=== PATIENT | female | born 1950 | race Caucasian/White ===

== ENCOUNTER 2017-09-02 06:18 | Inpatient (IN) ==
[2017-08-27 12:36] LABS: Basophils # 0.1 10*3/uL (0.0-0.2); Basophils % 0.9 % (0.0-0.8); Eosinophils # 0.4 10*3/uL (0.0-0.87); Eosinophils % 5.5 % (0.00-10.9); Hematocrit 43.9 VOL% (35.7-47.0); Hemoglobin 15.1 GM/DL (12.0-16.0); Immature Granulocytes % 0.1 %; Immature Granulocytes Absolute 0.01 #; Lymphocytes # 2.5 10*3/uL (1.4-4.0); Lymphocytes % 36.4 % (21.3-54.2); Mean Corpuscular HGB Conc 34.4 GM/DL (32-36); Mean Corpuscular Hemoglobin 32 PG (27-34); Mean Corpuscular Volume 92.6 FL (87-102); Mean Platelet Volume 11.3 FL (9.6-12.0); Monocytes # 0.4 10*3/uL (0.11-0.8); Monocytes % 5.7 % (1.7-12.7); Neutrophils # 3.6 10*3/uL (1.4-7.4); Neutrophils % 51.4 % (38.7-73.9); Platelet Count 283 T/CUMM (130-400); Red Blood Count 4.74 MC/CUMM (3.8-5.5); Red Cell Distribution Width 13.9 % (9.3-17.3); White Blood Count 6.9 T/CUMM (4-12)
[2017-08-27 13:13] LABS: Alanine Aminotransferase 24 U/L (13-56); Alkaline Phosphatase 120 U/L (45-117); Aspartate Amino Transferase 25 U/L (0-37); Bilirubin,Total < 0.39 MG/DL (0.2-1.0); Blood Urea Nitrogen 16 MG/DL (7-18); Calcium 9.4 MG/DL (8.5-10.1); Glucose 90 MG/DL (74-106); Osmolality,Calculated 277.5 MOS/KG (273-304); Potassium 4.6 MMOL/L (3.5-5.1); Sodium 139 MMOL/L (136-145); Total Protein 8.5 G/DL (6.4-8.3)
[~2017-09-02 06:18] MED LIST: ceFAZolin 1,000 MG in SYRINGE 1 EACH IV ONE
[2017-09-02] MEDS ORDERED: TISSUE ADHESIVE 1 EACH APPLICATOR TOP ONE (06:24)
[2017-09-02] MEDS ORDERED: THROMBIN TOPICAL (RECOMBINANT) 5,000 UNIT VIAL TOP ONE (06:24)
[2017-09-02] MEDS ORDERED: HEPARIN 5,000 UNIT/1 ML VIAL ONE (06:24)
[2017-09-02] MEDS ORDERED: VANCOMYCIN 500 MG VIAL ONE (06:24)
[2017-09-02] MEDS ORDERED: LIDOCAINE 1% 50 ML VIAL ONE (06:24)
[2017-09-02] MEDS ORDERED: HEPARIN/NACL 0.9% 2 UNITS/ML 500 ML IV ONE (06:42)
[2017-09-02] MEDS ORDERED: NITROGLYCERIN DRIP 50 MG/250 ML BOTTLE IV ONE (06:42)
[2017-09-02] MEDS ORDERED: HEPARIN/NACL 0.9% 2 UNITS/ML 3,000 ML IV ONE (07:23)
[2017-09-02] MEDS ORDERED: ceFAZolin 1,000 MG VIAL ONE (07:24)
[2017-09-02] MEDS ORDERED: ALBUTEROL/IPRATROPIUM 3 ML NEB RESP TX ONE (07:24)
[2017-09-02] MEDS ORDERED: LACTATED RINGERS 1,000 ML IV SCH ×2 (07:30→10:00)
[2017-09-02] MEDS ORDERED: MIDAZOLAM 2 MG/2 ML VIAL ONE ×2 (07:38→10:43)
[2017-09-02] MEDS ORDERED: ONDANSETRON 4 MG/2 ML VIAL IV PRN (09:49)
[2017-09-02] MEDS ORDERED: HYDROmorphone 2 MG/1 ML VIAL IV PRN (09:49)
[2017-09-02] MEDS ORDERED: NITROGLYCERIN SL 0.4 MG TABLET SL PRN (09:53)
[2017-09-02] MEDS ORDERED: FUROSEMIDE 40 MG TABLET PO SCH (10:00)
[2017-09-02] MEDS ORDERED: PROPOFOL 200 MG/20 ML VIAL IV ONE (10:41)
[2017-09-02] MEDS ORDERED: HEPARIN 10,000 UNIT/10 ML VIAL ONE (10:42)
[2017-09-02] MEDS ORDERED: SEVOFLURANE 1 UNIT/15 MINUTE INH ONE (10:42)
[2017-09-02] MEDS ORDERED: PHENYLEPHRINE 10 MG/1 ML VIAL IV ONE (10:43)
[2017-09-02] MEDS ORDERED: fentaNYL 100 MCG/2 ML VIAL ONE (10:43)
[2017-09-02] MEDS ORDERED: ONDANSETRON 4 MG/2 ML VIAL ONE (10:43)
[2017-09-02] MEDS ORDERED: GLYCOPYRROLATE 0.4 MG/2 ML VIAL ONE (10:43)
[2017-09-02] MEDS ORDERED: SODIUM CHLORIDE 0.9% 250 ML IV ONE (10:44)
[2017-09-02] MEDS ORDERED: LACTATED RINGERS 1,000 ML IV ONE (10:44)
[2017-09-02] MEDS ORDERED: SODIUM CHLORIDE 0.9% 1,000 ML IV ONE (10:44)
[2017-09-02] MEDS ORDERED: NEOSTIGMINE 10 MG/10 ML VIAL ONE (10:44)
[2017-09-02] MEDS ORDERED: ROCURONIUM 100 MG/10 ML VIAL IV ONE (10:44)
[2017-09-02 10:46] LABS: Hematocrit 37.7 VOL% (35.7-47.0); Hemoglobin 12.6 GM/DL (12.0-16.0)
[2017-09-02] MEDS ORDERED: PITAVASTATIN 2 MG TABLET PO SCH (21:00)
[2017-09-02] MEDS ORDERED: INSULIN LISPRO 100 UNIT/ML SUBCUT SCH (21:00)
[2017-09-02] MEDS: oxyCODONE/ACETAMINOPHEN 5-325 MG TABLET PO PRN (21:06)
[2017-09-02] MEDS: MAGNESIUM OXIDE 400 MG TABLET PO SCH (21:07)
[2017-09-02] MEDS: RANOLAZINE 500 MG TABLET PO SCH (21:07)
[2017-09-03] MEDS: oxyCODONE/ACETAMINOPHEN 5-325 MG TABLET PO PRN (04:09)
[2017-09-03 05:08] LABS: Hematocrit 36.2 VOL% (35.7-47.0); Hemoglobin 12.6 GM/DL (12.0-16.0)
[2017-09-03 05:35] LABS: Calcium 8.5 MG/DL (8.5-10.1); Osmolality,Calculated 281.3 MOS/KG (273-304); Potassium 4.3 MMOL/L (3.5-5.1)
[2017-09-03] MEDS: RANOLAZINE 500 MG TABLET PO SCH (08:09)
[2017-09-03] MEDS: MAGNESIUM OXIDE 400 MG TABLET PO SCH (08:13)
[2017-09-03] MEDS ORDERED: AMIODARONE 200 MG TABLET PO SCH (09:00)
[2017-09-03] MEDS ORDERED: INSULIN LISPRO 100 UNIT/ML SUBCUT SCH (09:00)
[2017-09-03] MEDS ORDERED: amLODIPine 2.5 MG TABLET PO SCH (09:00)
[2017-09-03] MEDS ORDERED: FUROSEMIDE 40 MG TABLET PO SCH (09:00)
[2017-09-03] MEDS ORDERED: METOPROLOL SUCCINATE XL 25 MG TABLET PO SCH (09:00)
[2017-09-03] MEDS ORDERED: LOSARTAN 25 MG TABLET PO SCH (09:00)
[2017-09-03] MEDS ORDERED: ISOSORBIDE MONONITRATE 60 MG TABLET PO SCH (09:00)
[2017-09-03] MEDS ORDERED: SPIRONOLACTONE 25 MG TABLET PO SCH (09:00)
[2017-09-03] MEDS ORDERED: ASPIRIN EC 81 MG TABLET PO SCH (09:00)
[2017-09-03] MEDS ORDERED: POTASSIUM GLUCONATE 500 MG TABLET PO SCH (09:00)
[2017-09-03 09:09] VITALS: BP 121/71
[2017-09-03] MEDS ORDERED: BISACODYL 5 MG TABLET PO PRN (09:34)
== END 2017-09-03 10:55 | disposition home or self-care (01) | DRG 269 ==
LOC: N.SDSINP 06:18 → N.4E 11:30
PROVIDERS: ADMIT Surgery; ATTEND Surgery
PROC: IRERAAA (2017-09-02 07:05)

== ENCOUNTER 2018-12-07 23:15 | Observation (INO) ==
[2018-12-07 23:53] LABS: Basophils # 0.1 10*3/uL (0.0-0.2); Basophils % 0.4 % (0.0-0.8); Eosinophils # 0.2 10*3/uL (0.0-0.87); Eosinophils % 1.3 % (0.00-10.9); Hematocrit 38.1 VOL% (35.7-47.0); Hemoglobin 12.3 GM/DL (12.0-16.0); Immature Granulocytes % 0.4 %; Immature Granulocytes Absolute 0.05 #; Lymphocytes % 22.3 % (21.3-54.2); Mean Corpuscular HGB Conc 32.3 GM/DL (32-36); Mean Corpuscular Volume 94.3 FL (87-102); Mean Platelet Volume 10.5 FL (9.6-12.0); Monocytes % 5.3 % (1.7-12.7); Neutrophils % 70.3 % (38.7-73.9); Platelet Count 302 T/CUMM (130-400); Red Blood Count 4.04 MC/CUMM (3.8-5.5); Red Cell Distribution Width 14.6 % (9.3-17.3); White Blood Count 13.5 T/CUMM (4-12)
[2018-12-08] MEDS ORDERED: NITROGLYCERIN 2% OINT 1 INCH/GM PACK TOP STA (00:27)
[2018-12-08] MEDS ORDERED: ONDANSETRON 4 MG/2 ML VIAL IV STA (00:27)
[2018-12-08] MEDS ORDERED: ASPIRIN 325 MG TABLET PO STA (00:27)
[2018-12-08] MEDS ORDERED: MORPHINE 4 MG/1 ML VIAL IV STA (00:27)
[2018-12-08] MEDS ORDERED: ALUM/MAG/SIMETH/LIDO VISC 1:1 30 ML BOTTLE PO STA (00:27)
[2018-12-08] MEDS ORDERED: FUROSEMIDE 40 MG/4 ML VIAL IV STA (01:22)
[2018-12-08 01:45] LABS: Alanine Aminotransferase 15 U/L (13-56); Albumin 3.7 G/DL (3.4-5.0); Alkaline Phosphatase 86 U/L (45-117); Aspartate Amino Transferase 23 U/L (0-37); Bilirubin,Total < 0.39 MG/DL (0.2-1.0); Blood Urea Nitrogen 29 MG/DL (7-18); Calcium 9.8 MG/DL (8.5-10.1); Glucose 132 MG/DL (74-106); Osmolality,Calculated 282.7 MOS/KG (273-304); Total Protein 9.1 G/DL (6.4-8.3)
[2018-12-08 01:49] LABS: INR 1.9
[2018-12-08] MEDS ORDERED: ONDANSETRON 4 MG/2 ML VIAL IV PRN (03:14)
[2018-12-08] MEDS ORDERED: MAGNESIUM SULF RIDER 2 GM in PREMIX 1 EACH IV PRN (03:14)
[2018-12-08] MEDS ORDERED: SODIUM CHLORIDE 0.9% 1,000 ML IV SCH (03:14)
[2018-12-08] MEDS ORDERED: DEXTROSE 50% 25 GM/50 ML VIAL IV PRN (03:14)
[2018-12-08] MEDS ORDERED: MORPHINE 4 MG/1 ML VIAL IV PRN (03:14)
[2018-12-08] MEDS ORDERED: MAGNESIUM SULF RIDER 4 GM in PREMIX 1 EACH IV PRN (03:14)
[2018-12-08] MEDS ORDERED: GLUCAGON 1 MG VIAL IM PRN (03:14)
[2018-12-08] MEDS ORDERED: POTASSIUM CHLORIDE 20 MEQ TABLET PO PRN (03:14)
[2018-12-08 05:14] LABS: Basophils % 0.4 % (0.0-0.8); Eosinophils # 0.2 10*3/uL (0.0-0.87); Eosinophils % 2.1 % (0.00-10.9); Hematocrit 38.8 VOL% (35.7-47.0); Hemoglobin 12.6 GM/DL (12.0-16.0); Immature Granulocytes % 0.3 %; Immature Granulocytes Absolute 0.03 #; Lymphocytes # 2.9 10*3/uL (1.4-4.0); Lymphocytes % 30.7 % (21.3-54.2); Mean Corpuscular HGB Conc 32.5 GM/DL (32-36); Mean Corpuscular Volume 94.9 FL (87-102); Mean Platelet Volume 11.1 FL (9.6-12.0); Monocytes % 6.5 % (1.7-12.7); Platelet Count 290 T/CUMM (130-400); Red Blood Count 4.09 MC/CUMM (3.8-5.5); Red Cell Distribution Width 14.6 % (9.3-17.3); White Blood Count 9.4 T/CUMM (4-12)
[2018-12-08 06:15] LABS: Alanine Aminotransferase 15 U/L (13-56); Albumin 3.8 G/DL (3.4-5.0); Alkaline Phosphatase 88 U/L (45-117); Aspartate Amino Transferase 14 U/L (0-37); Bilirubin,Total < 0.39 MG/DL (0.2-1.0); Blood Urea Nitrogen 28 MG/DL (7-18); Calcium 9.7 MG/DL (8.5-10.1); Glucose 101 MG/DL (74-106); HDL Cholesterol 43 MG/DL (40-60); Osmolality,Calculated 282.5 MOS/KG (273-304); Risk Ratio 3.81; Triglycerides 113 MG/DL (2-150); VLDL CHOLESTEROL 22.6 MG/DL
[2018-12-08] MEDS: INSULIN REGULAR 100 UNIT/ML SUBCUT SCH ×2 (06:20→12:34)
[2018-12-08] MEDS ORDERED: NITROGLYCERIN SL 0.4 MG TABLET SL PRN (08:55)
[2018-12-08] MEDS ORDERED: MAGNESIUM OXIDE 400 MG TABLET PO SCH (09:00)
[2018-12-08] MEDS ORDERED: FUROSEMIDE 40 MG TABLET PO SCH (09:00)
[2018-12-08] MEDS ORDERED: LOSARTAN 25 MG TABLET PO SCH (09:00)
[2018-12-08] MEDS ORDERED: SPIRONOLACTONE 25 MG TABLET PO SCH (09:00)
[2018-12-08] MEDS ORDERED: AMIODARONE 200 MG TABLET PO SCH (09:00)
[2018-12-08] MEDS ORDERED: POTASSIUM GLUCONATE 500 MG TABLET PO SCH (09:00)
[2018-12-08] MEDS ORDERED: METOPROLOL SUCCINATE XL 25 MG TABLET PO SCH (09:00)
[2018-12-08] MEDS ORDERED: amLODIPine 2.5 MG TABLET PO SCH (09:00)
[2018-12-08] MEDS ORDERED: ISOSORBIDE MONONITRATE 60 MG TABLET PO SCH (09:00)
[2018-12-08] MEDS ORDERED: CILOSTAZOL 100 MG TABLET PO SCH (09:00)
[2018-12-08] MEDS ORDERED: RANOLAZINE 500 MG TABLET PO SCH (09:00)
[2018-12-08] MEDS ORDERED: WARFARIN 5 MG TABLET PO SCH (09:00)
[2018-12-08] MEDS ORDERED: buPROPion SR 150 MG TABLET PO SCH (09:00)
[2018-12-08] MEDS ORDERED: PANTOPRAZOLE 40 MG TABLET PO SCH (09:00)
[2018-12-08 12:03] VITALS: BP 104/53
[2018-12-08] MEDS ORDERED: WARFARIN 7.5 MG TABLET PO SCH (18:00)
[2018-12-08] MEDS ORDERED: SIMVASTATIN 40 MG TABLET PO SCH (21:00)
== END 2018-12-08 14:50 | disposition home or self-care (01) ==
LOC: N.ED 23:15 → N.EDINP 12-08 01:42 → INTOOBSV 12-08 01:42 → N.TELES 12-08 02:07
PROVIDERS: ADMIT Internal Medicine Interventional Cardiology; ATTEND Internal Medicine Interventional Cardiology

== ENCOUNTER 2019-03-17 09:24 | Inpatient (IN) ==
[2019-03-17] MEDS ORDERED: guaiFENesin/DM ER 600-30 MG TABLET PO PRN (09:29)
[2019-03-17] MEDS ORDERED: diphenhydrAMINE CAP 25 MG CAPSULE PO PRN (09:29)
[2019-03-17] MEDS ORDERED: MORPHINE 4 MG/1 ML VIAL IV PRN (09:29)
[2019-03-17] MEDS ORDERED: BISACODYL 5 MG TABLET PO PRN (09:29)
[2019-03-17] MEDS ORDERED: ZALEPLON 5 MG CAPSULE PO PRN (09:29)
[2019-03-17] MEDS ORDERED: ONDANSETRON 4 MG/2 ML VIAL IV PRN (09:29)
[2019-03-17] MEDS ORDERED: LACTULOSE 20 GM/30 ML UDCUP PO PRN (09:29)
[2019-03-17] MEDS ORDERED: MAGNESIUM SULF RIDER 4 GM in PREMIX 1 EACH IV PRN (09:29)
[2019-03-17] MEDS ORDERED: MAGNESIUM SULF RIDER 2 GM in PREMIX 1 EACH IV PRN (09:29)
[2019-03-17] MEDS ORDERED: POTASSIUM CHLORIDE 20 MEQ TABLET PO PRN (09:29)
[2019-03-17] MEDS ORDERED: NITROGLYCERIN SL 0.4 MG TABLET SL PRN (09:36)
[2019-03-17] MEDS ORDERED: METOPROLOL SUCCINATE XL 25 MG TABLET PO SCH (10:00)
[2019-03-17] MEDS ORDERED: FUROSEMIDE 40 MG/4 ML VIAL IV SCH (10:00)
[2019-03-17 11:34] LABS: Basophils # 0.1 10*3/uL (0.0-0.2); Basophils % 0.9 % (0.0-0.8); Eosinophils # 0.2 10*3/uL (0.0-0.87); Eosinophils % 2.5 % (0.00-10.9); Immature Granulocytes % 0.5 %; Immature Granulocytes Absolute 0.04 #; Lymphocytes # 2.3 10*3/uL (1.4-4.0); Lymphocytes % 28.7 % (21.3-54.2); Mean Corpuscular HGB Conc 31.4 GM/DL (32-36); Mean Corpuscular Volume 92.3 FL (87-102); Mean Platelet Volume 10.6 FL (9.6-12.0); Monocytes % 4.4 % (1.7-12.7); Platelet Count 350 T/CUMM (130-400); Red Blood Count 3.79 MC/CUMM (3.8-5.5); Red Cell Distribution Width 14.5 % (9.3-17.3); White Blood Count 8.1 T/CUMM (4-12)
[2019-03-17 11:54] LABS: Albumin 3.3 G/DL (3.4-5.0); Bilirubin,Total 1.3 MG/DL (0.2-1.0); Osmolality,Calculated 284.7 MOS/KG (273-304)
[2019-03-17 11:55] LABS: Troponin I < 0.015 NG/ML (0.00-0.045)
[2019-03-17] MEDS: AMIODARONE 200 MG TABLET PO SCH (12:42)
[2019-03-17] MEDS: MAGNESIUM OXIDE 400 MG TABLET PO SCH (12:42)
[2019-03-17] MEDS: LOSARTAN 25 MG TABLET PO SCH (12:42)
[2019-03-17 14:47] LABS: Apearance,Urine CLEAR (Clear); Bilirubin,Urine Negative (Negative); Blood, Urine Negative (Negative); Glucose,Urine (UA) Negative (Negative); Hyaline Casts,Urine 1 /LPF (0-3); Ketones,Urine Negative (Negative); Mucus,Urine Occasional /LPF (Occasional); Nitrite,Urine Negative (Negative); Protein,Urine Negative; RBC,Urine <1 /HPF (0-4); Urine Color Straw (Yellow); Urine Specific Gravity 1.005 (1.001-1.035); Urine Urobilinogen < 2.0 EU/DL (0.2-1.0); WBC,Urine <1 /HPF (0-6)
[2019-03-17 15:09] LABS: Troponin I < 0.015 NG/ML (0.00-0.045)
[2019-03-17 20:03] LABS: Troponin I 0.015 NG/ML (0.00-0.045)
[2019-03-17] MEDS: SIMVASTATIN 40 MG TABLET PO SCH (21:06)
[2019-03-17] MEDS: METOPROLOL SUCCINATE XL 25 MG TABLET PO SCH (21:06)
[2019-03-17] MEDS: ASPIRIN EC 81 MG TABLET PO SCH (21:06)
[2019-03-18 05:12] LABS: Basophils # 0.1 10*3/uL (0.0-0.2); Basophils % 0.6 % (0.0-0.8); Eosinophils # 0.3 10*3/uL (0.0-0.87); Eosinophils % 2.6 % (0.00-10.9); Hematocrit 32.8 VOL% (35.7-47.0); Hemoglobin 10.5 GM/DL (12.0-16.0); Immature Granulocytes % 0.6 %; Immature Granulocytes Absolute 0.06 #; Lymphocytes # 2.3 10*3/uL (1.4-4.0); Mean Corpuscular Volume 91.4 FL (87-102); Mean Platelet Volume 10.8 FL (9.6-12.0); Monocytes % 4.8 % (1.7-12.7); Neutrophils % 67.4 % (38.7-73.9); Platelet Count 339 T/CUMM (130-400); Red Blood Count 3.59 MC/CUMM (3.8-5.5); Red Cell Distribution Width 14.4 % (9.3-17.3); White Blood Count 9.5 T/CUMM (4-12)
[2019-03-18 05:34] LABS: Calcium 8.5 MG/DL (8.5-10.1); Osmolality,Calculated 279.8 MOS/KG (273-304); Risk Ratio 3.93; VLDL CHOLESTEROL 22.8 MG/DL
[2019-03-18] MEDS: DOBUTamine 500 MG/250 ML PREMIX IV SCH ×4 (07:35→21:24)
[2019-03-18] MEDS: MAGNESIUM OXIDE 400 MG TABLET PO SCH ×2 (07:37→09:29)
[2019-03-18] MEDS: AMIODARONE 200 MG TABLET PO SCH ×2 (07:37→09:28)
[2019-03-18] MEDS: LOSARTAN 25 MG TABLET PO SCH ×2 (07:37→09:29)
[2019-03-18] MEDS: PANTOPRAZOLE 40 MG TABLET PO SCH ×2 (07:37→09:29)
[2019-03-18] MEDS ORDERED: FUROSEMIDE 40 MG/4 ML VIAL ONE (07:39)
[2019-03-18] MEDS: FUROSEMIDE 40 MG/4 ML VIAL IV SCH ×2 (07:42→16:50)
[2019-03-18] MEDS: INSULIN NPH/REGULAR 70/30 100 UNIT/ML SUBCUT SCH ×2 (09:28→16:50)
[2019-03-18 11:48] LABS: INR 2.3
[2019-03-18 11:50] LABS: PT Patient Result 24.9 SECS (9.6-12.2)
[2019-03-18] MEDS: WARFARIN 5 MG TABLET PO SCH (17:30)
[2019-03-18] MEDS: ACETAMINOPHEN 325 MG TABLET PO PRN (20:20)
[2019-03-18] MEDS: ASPIRIN EC 81 MG TABLET PO SCH (20:49)
[2019-03-18] MEDS: METOPROLOL SUCCINATE XL 25 MG TABLET PO SCH (20:49)
[2019-03-18] MEDS: SIMVASTATIN 40 MG TABLET PO SCH (20:49)
[2019-03-19 04:34] LABS: Basophils % 0.3 % (0.0-0.8); Eosinophils # 0.2 10*3/uL (0.0-0.87); Eosinophils % 2.4 % (0.00-10.9); Hematocrit 31.8 VOL% (35.7-47.0); Hemoglobin 10.3 GM/DL (12.0-16.0); Immature Granulocytes % 0.2 %; Immature Granulocytes Absolute 0.02 #; Lymphocytes # 2.1 10*3/uL (1.4-4.0); Lymphocytes % 23.3 % (21.3-54.2); Mean Corpuscular HGB Conc 32.4 GM/DL (32-36); Mean Corpuscular Volume 90.1 FL (87-102); Mean Platelet Volume 10.2 FL (9.6-12.0); Monocytes % 5.3 % (1.7-12.7); Neutrophils % 68.5 % (38.7-73.9); Platelet Count 316 T/CUMM (130-400); Red Blood Count 3.53 MC/CUMM (3.8-5.5); Red Cell Distribution Width 14.4 % (9.3-17.3); White Blood Count 8.9 T/CUMM (4-12)
[2019-03-19 05:00] LABS: Calcium 8.8 MG/DL (8.5-10.1); Osmolality,Calculated 281.3 MOS/KG (273-304)
[2019-03-19] MEDS: AMOXICILLIN/CLAV 875 MG TABLET PO SCH ×2 (09:42→20:52)
[2019-03-19] MEDS: POTASSIUM CHLORIDE 20 MEQ TABLET PO SCH ×2 (09:42→20:53)
[2019-03-19] MEDS: AMIODARONE 200 MG TABLET PO SCH (09:42)
[2019-03-19] MEDS: PANTOPRAZOLE 40 MG TABLET PO SCH (09:42)
[2019-03-19] MEDS: MAGNESIUM OXIDE 400 MG TABLET PO SCH (09:42)
[2019-03-19] MEDS: FUROSEMIDE 40 MG/4 ML VIAL IV SCH ×2 (09:42→17:02)
[2019-03-19] MEDS: LOSARTAN 25 MG TABLET PO SCH (09:42)
[2019-03-19] MEDS: INSULIN NPH/REGULAR 70/30 100 UNIT/ML SUBCUT SCH ×2 (09:43→17:02)
[2019-03-19] MEDS: DOBUTamine 500 MG/250 ML PREMIX IV SCH ×2 (10:37→23:34)
[2019-03-19] MEDS: WARFARIN 5 MG TABLET PO SCH (17:47)
[2019-03-19] MEDS: METOPROLOL SUCCINATE XL 25 MG TABLET PO SCH (20:53)
[2019-03-19] MEDS: ASPIRIN EC 81 MG TABLET PO SCH (20:53)
[2019-03-19] MEDS: SIMVASTATIN 40 MG TABLET PO SCH (20:53)
[2019-03-20 04:31] LABS: Basophils % 0.2 % (0.0-0.8); Eosinophils # 0.3 10*3/uL (0.0-0.87); Hematocrit 30.5 VOL% (35.7-47.0); Immature Granulocytes % 0.2 %; Immature Granulocytes Absolute 0.02 #; Lymphocytes # 1.7 10*3/uL (1.4-4.0); Lymphocytes % 19.2 % (21.3-54.2); Mean Corpuscular HGB Conc 32.8 GM/DL (32-36); Mean Corpuscular Volume 89.7 FL (87-102); Mean Platelet Volume 10.3 FL (9.6-12.0); Monocytes % 5.7 % (1.7-12.7); Neutrophils % 71.7 % (38.7-73.9); Platelet Count 353 T/CUMM (130-400); Red Cell Distribution Width 14.4 % (9.3-17.3); White Blood Count 8.7 T/CUMM (4-12)
[2019-03-20 04:50] LABS: Calcium 8.7 MG/DL (8.5-10.1); Osmolality,Calculated 277.5 MOS/KG (273-304)
[2019-03-20 07:14] LABS: Eosinophils 2 % (0-10); Lymphocytes 13 % (20-55); Segmented Neutrophils 84 % (50-85); Stomatocytes Slight; Total Cells Counted 100
[2019-03-20 07:15] LABS: Anisocytosis 1+; Hypochromasia 1+; Microcytosis 1+; Polychromasia Slight
[2019-03-20 07:16] LABS: Platelet Estimate Increased
[2019-03-20] MEDS: POTASSIUM CHLORIDE 20 MEQ TABLET PO SCH ×2 (08:33→21:49)
[2019-03-20] MEDS: AMOXICILLIN/CLAV 875 MG TABLET PO SCH ×2 (08:33→21:48)
[2019-03-20] MEDS: AMIODARONE 200 MG TABLET PO SCH (08:33)
[2019-03-20] MEDS: PANTOPRAZOLE 40 MG TABLET PO SCH (08:33)
[2019-03-20] MEDS: FUROSEMIDE 40 MG/4 ML VIAL IV SCH ×2 (08:33→16:45)
[2019-03-20] MEDS: LOSARTAN 25 MG TABLET PO SCH (08:33)
[2019-03-20] MEDS: MAGNESIUM OXIDE 400 MG TABLET PO SCH (08:33)
[2019-03-20] MEDS: INSULIN NPH/REGULAR 70/30 100 UNIT/ML SUBCUT SCH ×2 (08:34→16:45)
[2019-03-20 11:29] LABS: INR 2.6
[2019-03-20 11:34] LABS: PT Patient Result 28.4 SECS (9.6-12.2)
[2019-03-20] MEDS: DOBUTamine 500 MG/250 ML PREMIX IV SCH (14:37)
[2019-03-20] MEDS: WARFARIN 5 MG TABLET PO SCH (17:50)
[2019-03-20] MEDS: ACETAMINOPHEN 325 MG TABLET PO PRN (21:48)
[2019-03-20] MEDS: ASPIRIN EC 81 MG TABLET PO SCH (21:48)
[2019-03-20] MEDS: METOPROLOL SUCCINATE XL 25 MG TABLET PO SCH (21:49)
[2019-03-20] MEDS: SIMVASTATIN 40 MG TABLET PO SCH (21:49)
[2019-03-21] MEDS: DOBUTamine 500 MG/250 ML PREMIX IV SCH ×2 (04:28→16:40)
[2019-03-21 04:39] LABS: Basophils % 0.3 % (0.0-0.8); Eosinophils # 0.4 10*3/uL (0.0-0.87); Eosinophils % 5.8 % (0.00-10.9); Hematocrit 32.4 VOL% (35.7-47.0); Hemoglobin 10.3 GM/DL (12.0-16.0); Immature Granulocytes % 0.3 %; Immature Granulocytes Absolute 0.02 #; Lymphocytes # 1.8 10*3/uL (1.4-4.0); Lymphocytes % 26.3 % (21.3-54.2); Mean Corpuscular HGB Conc 31.8 GM/DL (32-36); Mean Corpuscular Volume 90.8 FL (87-102); Mean Platelet Volume 10.5 FL (9.6-12.0); Monocytes % 5.8 % (1.7-12.7); Neutrophils % 61.5 % (38.7-73.9); Platelet Count 382 T/CUMM (130-400); Red Blood Count 3.57 MC/CUMM (3.8-5.5); Red Cell Distribution Width 14.6 % (9.3-17.3); White Blood Count 6.8 T/CUMM (4-12)
[2019-03-21 04:53] LABS: INR 3.3
[2019-03-21 04:58] LABS: Calcium 8.9 MG/DL (8.5-10.1); Osmolality,Calculated 271.1 MOS/KG (273-304); PT Patient Result 35.7 SECS (9.6-12.2)
[2019-03-21] MEDS: FUROSEMIDE 40 MG/4 ML VIAL IV SCH ×2 (08:15→16:33)
[2019-03-21] MEDS: INSULIN NPH/REGULAR 70/30 100 UNIT/ML SUBCUT SCH ×2 (08:15→16:39)
[2019-03-21] MEDS: AMIODARONE 200 MG TABLET PO SCH (08:18)
[2019-03-21] MEDS: PANTOPRAZOLE 40 MG TABLET PO SCH (08:18)
[2019-03-21] MEDS: POTASSIUM CHLORIDE 20 MEQ TABLET PO SCH ×2 (08:18→20:33)
[2019-03-21] MEDS: MAGNESIUM OXIDE 400 MG TABLET PO SCH (08:18)
[2019-03-21] MEDS: LOSARTAN 25 MG TABLET PO SCH (08:18)
[2019-03-21] MEDS: AMOXICILLIN/CLAV 875 MG TABLET PO SCH ×2 (08:32→20:33)
[2019-03-21] MEDS: WARFARIN 5 MG TABLET PO SCH (17:56)
[2019-03-21] MEDS: ASPIRIN EC 81 MG TABLET PO SCH (20:33)
[2019-03-21] MEDS: SIMVASTATIN 40 MG TABLET PO SCH (20:33)
[2019-03-21] MEDS: METOPROLOL SUCCINATE XL 25 MG TABLET PO SCH (20:33)
[2019-03-21] MEDS: ACETAMINOPHEN 325 MG TABLET PO PRN (20:35)
[2019-03-22 04:01] LABS: Basophils % 0.4 % (0.0-0.8); Eosinophils # 0.6 10*3/uL (0.0-0.87); Eosinophils % 8.6 % (0.00-10.9); Hematocrit 35.2 VOL% (35.7-47.0); Hemoglobin 11.2 GM/DL (12.0-16.0); Immature Granulocytes % 0.3 %; Immature Granulocytes Absolute 0.02 #; Lymphocytes % 27.9 % (21.3-54.2); Mean Corpuscular HGB Conc 31.8 GM/DL (32-36); Mean Corpuscular Volume 91.2 FL (87-102); Mean Platelet Volume 10.3 FL (9.6-12.0); Monocytes % 5.7 % (1.7-12.7); Neutrophils % 57.1 % (38.7-73.9); Platelet Count 425 T/CUMM (130-400); Red Blood Count 3.86 MC/CUMM (3.8-5.5); Red Cell Distribution Width 14.6 % (9.3-17.3)
[2019-03-22 04:06] LABS: INR 3.1; PT Patient Result 33.1 SECS (9.6-12.2)
[2019-03-22 04:23] LABS: Calcium 9.1 MG/DL (8.5-10.1); Osmolality,Calculated 277.8 MOS/KG (273-304)
[2019-03-22] MEDS: DOBUTamine 500 MG/250 ML PREMIX IV SCH (05:24)
[2019-03-22] MEDS ORDERED: FUROSEMIDE 80 MG TABLET PO SCH (08:00)
[2019-03-22] MEDS: INSULIN NPH/REGULAR 70/30 100 UNIT/ML SUBCUT SCH (08:02)
[2019-03-22] MEDS: AMIODARONE 200 MG TABLET PO SCH (09:32)
[2019-03-22] MEDS: LOSARTAN 25 MG TABLET PO SCH (09:33)
[2019-03-22] MEDS: MAGNESIUM OXIDE 400 MG TABLET PO SCH (09:33)
[2019-03-22] MEDS: AMOXICILLIN/CLAV 875 MG TABLET PO SCH (09:33)
[2019-03-22] MEDS: POTASSIUM CHLORIDE 20 MEQ TABLET PO SCH (09:33)
[2019-03-22] MEDS: PANTOPRAZOLE 40 MG TABLET PO SCH (09:34)
[2019-03-22 11:30] VITALS: BP 115/56
== END 2019-03-22 11:45 | disposition home or self-care (01) | DRG 291 ==
LOC: N.TELEN 10:18
PROVIDERS: ADMIT Internal Medicine Interventional Cardiology; ATTEND Internal Medicine Interventional Cardiology

== ENCOUNTER 2020-06-25 10:13 | Inpatient (IN) ==
[2020-06-25] MEDS ORDERED: FUROSEMIDE 100 MG/10 ML VIAL IV STA (10:49)
[2020-06-25] MEDS ORDERED: ALBUTEROL 2.5 MG/3 ML NEB RESP TX STA (10:50)
[2020-06-25] MEDS ORDERED: MORPHINE 10 MG/1 ML VIAL IV STA (10:50)
[2020-06-25] MEDS ORDERED: MORPHINE 4 MG/1 ML VIAL IV STA (11:11)
[2020-06-25 11:20] LABS: Basophils % 0.5 % (0.0-0.8); Eosinophils % 0.1 % (0.00-10.9); Hemoglobin 10.7 GM/DL (12.0-16.0); Immature Granulocytes % 0.4 %; Immature Granulocytes Absolute 0.03 #; Lymphocytes # 1.6 10*3/uL (1.4-4.0); Lymphocytes % 19.8 % (21.3-54.2); Mean Corpuscular HGB Conc 29.7 GM/DL (32-36); Mean Corpuscular Volume 80.4 FL (87-102); Mean Platelet Volume 12.9 FL (9.6-12.0); Monocytes % 3.9 % (1.7-12.7); NRBC # 0.31 10*3/uL; Neutrophils % 75.3 % (38.7-73.9); Platelet Count 261 T/CUMM (130-400); Red Blood Count 4.48 MC/CUMM (3.8-5.5); Red Cell Distribution Width 17.7 % (9.3-17.3); White Blood Count 8.3 T/CUMM (4-12)
[2020-06-25] MEDS ORDERED: HYDROCORTISONE 100 MG VIAL IV STA (11:30)
[2020-06-25] MEDS: DOBUTamine 500 MG/250 ML PREMIX IV PRN (11:30)
[2020-06-25 11:49] LABS: Albumin 2.7 G/DL (3.4-5.0); Bilirubin,Total 1.6 MG/DL (0.2-1.0); Osmolality,Calculated 303.4 MOS/KG (273-304); Potassium 5.1 MMOL/L (3.5-5.1); Total Protein 8.2 G/DL (6.4-8.3)
[2020-06-25 12:32] LABS: PT Patient Result 85.3 SECS (9.8-11.9); Partial Thromboplastin Time 50.6 SECS (23.9-33.8)
[2020-06-25 12:36] LABS: INR 8.9
[2020-06-25] MEDS ORDERED: ONDANSETRON 4 MG/2 ML VIAL IV PRN (12:45)
[2020-06-25] MEDS ORDERED: ALBUTEROL 2.5 MG/3 ML NEB RESP TX PRN (12:45)
[2020-06-25] MEDS ORDERED: AMIODARONE INJ 150 MG in DEXTROSE 5% 100 ML IV ONE (14:28)
[2020-06-25] MEDS: AMIODARONE INJ 450 MG in DEXTROSE 5% 241 ML IV SCH (14:59)
[2020-06-25 15:36] LABS: Bilirubin,Urine Negative (Negative); Blood, Urine Small mg/dL (Negative); Glucose,Urine (UA) Negative (Negative); Ketones,Urine Negative (Negative); Mucus,Urine Occasional /LPF (Occasional); Nitrite,Urine Negative (Negative); Protein,Urine Negative; RBC,Urine 1 /HPF (0-4); Urine Appearance CLEAR (Clear); Urine Color Straw (Yellow); Urine Specific Gravity 1.006 (1.001-1.035); Urine Urobilinogen < 2.0 EU/DL (0.2-1.0); WBC,Urine 18 /HPF (0-6)
[2020-06-25] MEDS ORDERED: NOREPINEPHRINE 8 MG in SODIUM CHLORIDE 0.9% 242 ML IV PRN (16:24)
[2020-06-25] MEDS ORDERED: HYDROCORTISONE 100 MG VIAL IV SCH (17:00)
[2020-06-25] MEDS ORDERED: FUROSEMIDE 40 MG/4 ML VIAL IV ONE (19:07)
[2020-06-25] MEDS: SUCRALFATE 1 GM/10 ML UDCUP NG SCH (19:58)
[2020-06-25] MEDS: ASPIRIN EC 81 MG TABLET PO SCH (21:48)
[2020-06-25] MEDS: HYDROCORTISONE 100 MG VIAL IV SCH (21:48)
[2020-06-25] MEDS: ROSUVASTATIN 10 MG TABLET PO SCH (21:48)
[2020-06-26] MEDS ORDERED: HALOPERIDOL 5 MG/ML AMP IV ONE (00:05)
[2020-06-26 01:27] LABS: Allen Test Positive
[2020-06-26 01:30] LABS: ABG Base Excess -3.4 MMOL/L (-2.5-2.5); ABG HCO3 21.6 MMOL/L (20-26); ABG Oxygen Saturation 99.6 % (95-100); ABG PCO2 28.4 MM HG (35-48); ABG PH 7.448 (7.35-7.45); ABG TCO2 17.7 MMOL/L (23-27)
[2020-06-26 01:37] LABS: Calcium 8.5 MG/DL (8.5-10.1); Osmolality,Calculated 296.4 MOS/KG (273-304); Potassium 5.5 MMOL/L (3.5-5.1)
[2020-06-26 01:49] LABS: Troponin I 0.078 NG/ML (0.00-0.045)
[2020-06-26] MEDS ORDERED: LORazepam 2 MG/1 ML VIAL IV ONE (01:51)
[2020-06-26] MEDS: SUCRALFATE 1 GM/10 ML UDCUP NG SCH ×5 (02:33→23:30)
[2020-06-26 03:52] LABS: ABG Base Excess -2.9 MMOL/L (-2.5-2.5); ABG HCO3 20.8 MMOL/L (20-26); ABG PCO2 32.2 MM HG (35-48); ABG PH 7.429 (7.35-7.45); ABG PO2 115.9 MM HG (80-95); ABG TCO2 21.8 MMOL/L (23-27)
[2020-06-26] MEDS: AMIODARONE INJ 450 MG in DEXTROSE 5% 241 ML IV SCH ×2 (06:00→20:13)
[2020-06-26 06:36] LABS: Basophils % 0.1 % (0.0-0.8); Hematocrit 34.1 VOL% (35.7-47.0); Hemoglobin 10.3 GM/DL (12.0-16.0); Immature Granulocytes % 0.3 %; Immature Granulocytes Absolute 0.03 #; Lymphocytes % 10.9 % (21.3-54.2); Mean Corpuscular HGB Conc 30.2 GM/DL (32-36); Mean Corpuscular Volume 79.3 FL (87-102); Mean Platelet Volume 12.8 FL (9.6-12.0); Monocytes % 3.3 % (1.7-12.7); NRBC # 0.19 10*3/uL; Neutrophils % 85.4 % (38.7-73.9); Platelet Count 232 T/CUMM (130-400); Red Cell Distribution Width 17.7 % (9.3-17.3); White Blood Count 8.8 T/CUMM (4-12)
[2020-06-26] MEDS: HYDROCORTISONE 100 MG VIAL IV SCH ×3 (06:40→20:06)
[2020-06-26] MEDS ORDERED: DIGOXIN 0.5 MG/2 ML AMP IV ONE ×2 (07:09→09:00)
[2020-06-26 08:39] LABS: Calcium 8.3 MG/DL (8.5-10.1); Osmolality,Calculated 304.8 MOS/KG (273-304)
[2020-06-26 08:48] LABS: PT Patient Result 71.1 SECS (9.8-11.9)
[2020-06-26 08:50] LABS: INR 7.4
[2020-06-26] MEDS ORDERED: MORPHINE 4 MG/1 ML VIAL ONE (09:44)
[2020-06-26] MEDS ORDERED: FUROSEMIDE 40 MG/4 ML VIAL IV ONE (09:48)
[2020-06-26] MEDS: MORPHINE 4 MG/1 ML VIAL IV PRN ×4 (10:00→23:30)
[2020-06-26] MEDS ORDERED: PHYTONADIONE 5 MG/5 ML ORAL.SYR PO ONE (10:11)
[2020-06-26] MEDS ORDERED: METOPROLOL TARTRATE 25 MG TABLET PO SCH (10:30)
[2020-06-26] MEDS: PANTOPRAZOLE 40 MG TABLET PO SCH (11:10)
[2020-06-26] MEDS: AMIODARONE 200 MG TABLET PO SCH ×2 (11:10→20:08)
[2020-06-26] MEDS: METOPROLOL TARTRATE 25 MG TABLET PO SCH ×2 (11:10→20:06)
[2020-06-26] MEDS: DILTIAZEM INJ 100 MG in SODIUM CHLORIDE 0.9% 100 ML IV SCH (15:14)
[2020-06-26] MEDS: SKIN HEALING OINT (AQUAPHOR) 50 GM TUBE TOP SCH (18:26)
[2020-06-26] MEDS: ROSUVASTATIN 10 MG TABLET PO SCH (20:06)
[2020-06-26] MEDS: ASPIRIN EC 81 MG TABLET PO SCH (20:06)
[2020-06-26] MEDS: DOBUTamine 500 MG/250 ML PREMIX IV PRN (23:29)
[2020-06-27] MEDS: MORPHINE 4 MG/1 ML VIAL IV PRN ×6 (03:28→22:56)
[2020-06-27 03:41] LABS: Hematocrit 33.5 VOL% (35.7-47.0); Immature Granulocytes % 0.6 %; Immature Granulocytes Absolute 0.06 #; Lymphocytes # 0.6 10*3/uL (1.4-4.0); Lymphocytes % 5.3 % (21.3-54.2); Mean Corpuscular HGB Conc 29.9 GM/DL (32-36); Monocytes % 2.7 % (1.7-12.7); NRBC # 0.19 10*3/uL; Neutrophils % 91.4 % (38.7-73.9); Platelet Count 181 T/CUMM (130-400); Red Blood Count 4.19 MC/CUMM (3.8-5.5); Red Cell Distribution Width 18.3 % (9.3-17.3); White Blood Count 10.9 T/CUMM (4-12)
[2020-06-27 04:12] LABS: Hypochromasia 1+; Lymphocytes 4 % (20-55); Microcytosis 1+; Nucleated Red Blood Cells 3 (0-5); Platelet Estimate Adequate; Segmented Neutrophils 94 % (50-85); Total Cells Counted 100
[2020-06-27] MEDS: HYDROCORTISONE 100 MG VIAL IV SCH ×2 (05:15→18:22)
[2020-06-27] MEDS: SUCRALFATE 1 GM/10 ML UDCUP NG SCH ×2 (05:15→16:35)
[2020-06-27 05:32] LABS: Calcium 8.6 MG/DL (8.5-10.1); Osmolality,Calculated 302.5 MOS/KG (273-304); Potassium 5.6 MMOL/L (3.5-5.1)
[2020-06-27] MEDS ORDERED: MORPHINE 10 MG/5 ML UDCUP PO PRN (08:13)
[2020-06-27] MEDS ORDERED: FUROSEMIDE 40 MG/4 ML VIAL IV ONE (09:00)
[2020-06-27] MEDS ORDERED: DIGOXIN 0.5 MG/2 ML AMP IV SCH ×2 (09:00)
[2020-06-27] MEDS: METOPROLOL TARTRATE 25 MG TABLET PO SCH ×2 (09:18→21:18)
[2020-06-27] MEDS: SKIN HEALING OINT (AQUAPHOR) 50 GM TUBE TOP SCH (09:18)
[2020-06-27] MEDS: PANTOPRAZOLE 40 MG TABLET PO SCH (09:19)
[2020-06-27] MEDS: AMIODARONE 200 MG TABLET PO SCH ×2 (09:19→21:18)
[2020-06-27 10:11] LABS: PT Patient Result 53.5 SECS (9.8-11.9)
[2020-06-27 10:43] LABS: INR 5.5
[2020-06-27] MEDS: DILTIAZEM INJ 100 MG in SODIUM CHLORIDE 0.9% 100 ML IV SCH (11:37)
[2020-06-27] MEDS: ASPIRIN EC 81 MG TABLET PO SCH (21:17)
[2020-06-28] MEDS: DOBUTamine 500 MG/250 ML PREMIX IV PRN (01:36)
[2020-06-28] MEDS: MORPHINE 4 MG/1 ML VIAL IV PRN ×2 (01:37→08:10)
[2020-06-28] MEDS ORDERED: LORazepam 2 MG/1 ML VIAL IV PRN (02:54)
[2020-06-28 04:57] LABS: Calcium 8.6 MG/DL (8.5-10.1); Osmolality,Calculated 316.7 MOS/KG (273-304); Potassium 4.7 MMOL/L (3.5-5.1)
[2020-06-28 05:01] LABS: Albumin 2.5 G/DL (3.4-5.0); Bilirubin,Direct 0.41 MG/DL (0.0-0.20); Bilirubin,Indirect 0.7 MG/DL (0.0-1.0); Bilirubin,Total 1.1 MG/DL (0.2-1.0); Total Protein 7.9 G/DL (6.4-8.3)
[2020-06-28] MEDS: HYDROCORTISONE 100 MG VIAL IV SCH (06:16)
[2020-06-28] MEDS: SUCRALFATE 1 GM/10 ML UDCUP NG SCH (08:47)
[2020-06-28] MEDS ORDERED: FUROSEMIDE 40 MG/4 ML VIAL IV ONE (09:47)
[2020-06-28] MEDS ORDERED: MORPHINE 4 MG/1 ML VIAL IV PRN (09:48)
[2020-06-28] MEDS: SKIN HEALING OINT (AQUAPHOR) 50 GM TUBE TOP SCH (09:53)
[2020-06-28] MEDS: LORazepam 2 MG/1 ML VIAL IV PRN ×2 (10:10→12:44)
[2020-06-28 12:29] VITALS: BP 101/73
== END 2020-06-28 15:00 | disposition hospice, home (50) | DRG 291 ==
LOC: N.ED 10:13 → SUATTDRO 11:27 → N.EDINP 11:27 → N.ICU 11:56 → N.TELES 06-27 14:55
PROVIDERS: ADMIT Internal Medicine; ATTEND Emergency Medicine